=== PATIENT | male | born 1960 | race Caucasian/White ===

== ENCOUNTER 2017-02-06 03:32 | Emergency (ER) | payer BC | END 2017-02-06 07:09 | disposition home or self-care (01) | LOC: ER1 03:32 | DX: N13.2 Hydronephrosis with renal and ureteral calculous obstruction (principal); N28.1 Cyst of kidney, acquired; R31.9 Hematuria, unspecified | CPT/HCPCS: 81001; 87086; 96374; 99284; J1885 ==

== ENCOUNTER → 2020-10-28 | Outpatient (CLI) | payer BC | LOC: EXRD 12:56 | DX: M79.641 Pain in right hand (principal); M79.642 Pain in left hand; M19.09 Primary osteoarthritis, other specified site | CPT/HCPCS: 73130 ==

== ENCOUNTER → 2021-05-05 | Outpatient (CLI) | payer BC | LOC: KOH-I 09:09 | DX: M54.41 Lumbago with sciatica, right side (principal); M47.816 Spondylosis without myelopathy or radiculopathy, lumbar region | CPT/HCPCS: 72100 ==